=== PATIENT | male | born 1965 | race Caucasian/White ===

== ENCOUNTER 2016-10-24 08:36 | Emergency (ER) | payer OTHER ==
[~2016-10-24] VITALS: Ht 188 cm; Wt 117.9 kg
[~2016-10-24 08:36] MED LIST: ERYT1OIN6 EACHEYE; ERYT1OIN6 OS; OFLO5DRO EACHEYE; OFLO5DRO OS
--- NOTE | 2016-10-24 09:00 | EKG ---
[facility] [address] [place] [address] Test Date: 2016-10-24 Test Time: 08:49:34 Pat Name: ADAM AUSTIN Department: Room: Gender: M Packaging Engineer: : 1965 Requested By: BREANNE SWEENEY Order Number: [id number] Reading MD: Michelle Sutherland Measurements Intervals [place] Rate: 62 P: 20 MO: 172 QRS: -8 QRSD: 92 T: 9 QT: 362 QTc: 369 Interpretive Statements SINUS RHYTHM LEFTWARD AXIS OTHERWISE NORMAL ECG RI6.01 Unconfirmed report No previous ECG available for comparison Electronically Signed On 10-27-2016 15:47:08 [employer] by Michelle Sutherland
--- NOTE | 2016-10-24 09:20 | RAD ---
Indication chest pain. A single view of the chest was obtained. No prior imaging of the chest is available. Heart size is at the upper limits of normal. There is no congestive heart failure focal infiltrate significant pleural fluid collection or pneumothorax. Visualized bony structures appear grossly intact. IMPRESSION: No acute or focal process seen in the chest
[2016-10-24 09:44] LABS: BASO % 0 % (0-3); EOS % 5 % (0-3); HEMATOCRIT 47.5 % (39.0-53.0); HEMOGLOBIN 15.9 g/dL (13.0-17.5); LYMPH # 1.7 x10^3/uL (1.0-4.8); LYMPH % 24 % (24-48); MEAN CORPUSCULAR HEMOGLOBIN 28 pg (25-35); MEAN CORPUSCULAR HGB CONC 34 g/dL (31-37); MEAN CORPUSCULAR VOLUME 85 fL (79-100); MONO % 8 % (0-9); NEUT % 63 % (31-73); PLATELET COUNT 225 x10^3/uL (140-400); RED BLOOD COUNT 5.62 x10^6/uL (4.30-5.70); RED CELL DISTRIBUTION WIDTH 14.2 % (11.5-14.5); WHITE BLOOD COUNT 6.9 x10^3/uL (4.0-11.0)
[2016-10-24 09:55] LABS: CALCIUM 9.6 mg/dL (8.5-10.1); CREATININE 1.1 mg/dL (0.7-1.3); GFR 71.4
--- NOTE | 2016-10-24 09:57 | PHYS DOC ---
Past Medical History Past Medical History: Cancer, Hypertension Additional Past Medical Histor: prostate ca Past Surgical History: No Surgical History Additional Past Surgical Histo: prostate removed Alcohol Use: Occasionally Drug Use: None Adult General Chief Complaint Chief Complaint: CHEST PAIN HPI HPI 50-year-old male with remote history of prostate cancer who works in our IT department presents with sudden onset of right upper quadrant pain radiating to his back. He states he was sitting in his desk this morning eating yogurt when he developed a sharp pain in his right lower chest right upper quadrant that radiated to his back. The pain lasted for several minutes he talked to a nurse who was working near him this morning and she told him to come to the ER for evaluation. On arrival to the emergency department his pain had resolved. He states he was briefly nauseous but did not have any diaphoresis. He denies any fever chills or sweats. He states this is the first time she's had such a pain. He does state that he sits most of the day at a desk. He denies any unilateral lower extremity swelling. [] Review of Systems Review of Systems Constitutional: Denies fever or chills [] Eyes: Denies change in visual acuity, redness, or eye pain [] HENT: Denies nasal congestion or sore throat [] Respiratory: Denies cough or shortness of breath [] Cardiovascular: No additional information not addressed in HPI [] GI: Per history of present illness [] : Denies dysuria or hematuria [] Musculoskeletal: Denies back pain or joint pain [] Integument: Denies rash or skin lesions [] Neurologic: Denies headache, focal weakness or sensory changes [] Endocrine: Denies polyuria or polydipsia [] Allergies Allergies Allergies Coded Allergies Type Severity Reaction Last Updated Verified sulfamethoxazole Allergy Mild rash 10/24/16 Yes trimethoprim Allergy Mild rash 10/24/16 Yes Physical Exam Physical Exam Constitutional: Well developed, well nourished, no acute distress, non-toxic appearance. [] HENT: Normocephalic, atraumatic, bilateral external ears normal, oropharynx moist, no oral exudates, nose normal. [] Eyes: PERRLA, EOMI, conjunctiva normal, no discharge. [] Neck: Normal range of motion, no tenderness, supple, no stridor. [] Cardiovascular:Heart rate regular rhythm, no murmur [] Lungs & Thorax: Bilateral breath sounds clear to auscultation [] Abdomen: Bowel sounds normal, soft, no tenderness, no masses, no pulsatile masses. [] Skin: Warm, dry, no erythema, no rash. [] Back: No tenderness, no CVA tenderness. [] Extremities: No tenderness, no cyanosis, no clubbing, ROM intact, no edema. [] Neurologic: Alert and oriented X 3, normal motor function, normal sensory function, no focal deficits noted. [] Psychologic: Affect normal, judgement normal, mood normal. [] Current Patient Data Vital Signs Vital Signs Date Time Temp Pulse Resp B/P Pulse Ox O2 Delivery O2 Flow Rate FiO2 10/24/16 10:30 66 18 146/86 97 Room Air 10/24/16 08:57 97.6 97.6 Lab Values Laboratory Tests Test 10/24/16 09:19 White Blood Count 6.9x10^3/uL (4.0-11.0) Red Blood Count 5.62x10^6/uL (4.30-5.70) Hemoglobin 15.9g/dL (13.0-17.5) Hematocrit 47.5% (39.0-53.0) Mean Corpuscular Volume 85fL (79-100) Mean Corpuscular Hemoglobin 28pg (25-35) Mean Corpuscular Hemoglobin Concent 34g/dL (31-37) Red Cell Distribution Width 14.2% (11.5-14.5) Platelet Count 225x10^3/uL (140-400) Neutrophils (%) (Auto) 63% (31-73) Lymphocytes (%) (Auto) 24% (24-48) Monocytes (%) (Auto) 8% (0-9) Eosinophils (%) (Auto) 5% (0-3) H Basophils (%) (Auto) 0% (0-3) Neutrophils # (Auto) 4.4x10^3uL (1.8-7.7) Lymphocytes # (Auto) 1.7x10^3/uL (1.0-4.8) Monocytes # (Auto) 0.5x10^3/uL (0.0-1.1) Eosinophils # (Auto) 0.3x10^3/uL (0.0-0.7) Basophils # (Auto) 0.0x10^3/uL (0.0-0.2) D-Dimer (Abbi) < 0.27ug/mlFEU (0.00-0.50) Sodium Level 143mmol/L (136-145) Potassium Level 4.0mmol/L (3.5-5.1) Chloride Level 108mmol/L (98-107) H Carbon Dioxide Level 26mmol/L (21-32) Anion Gap 9 (6-14) Blood Urea Nitrogen 14mg/dL (8-26) Creatinine 1.1mg/dL (0.7-1.3) Estimated GFR (Cockcroft-Gault) 71.4 BUN/Creatinine Ratio 13 (6-20) Glucose Level 134mg/dL (70-99) H Calcium Level 9.6mg/dL (8.5-10.1) Total Bilirubin 0.7mg/dL (0.2-1.0) Aspartate Amino Transferase (AST) 20U/L (15-37) Alanine Aminotransferase (ALT) 30U/L (16-63) Alkaline Phosphatase 79U/L (46-116) Troponin I Quantitative < 0.017ng/mL (0.000-0.055) HW-Vjq-R-Type Natriuretic Peptide 10pg/mL (0-124) Total Protein 7.5g/dL (6.4-8.2) Albumin 3.7g/dL (3.4-5.0) Albumin/Globulin Ratio 1.0 (1.0-1.7) Laboratory Tests 10/24/16 09:19 Laboratory Tests 10/24/16 09:19 EKG EKG [EKG: Normal sinus rhythm rate of [address]-T changes] Radiology/Procedures Radiology/Procedures []PROCEDURE: CHEST AP ONLY Indication chest pain. A single view of the chest was obtained. No prior imaging of the chest is available. Heart size is at the upper limits of normal. There is no congestive heart failure focal infiltrate significant pleural fluid collection or pneumothorax. Visualized bony structures appear grossly intact. IMPRESSION: No acute or focal process seen in the chest Impressions: PROCEDURE: ABDOMEN LTD Limited abdomen ultrasound study of the right upper quadrant Clinical indications: Right upper quadrant abdominal pain. Findings: The patient ate 2 hours ago. Midline structures including the pancreas and abdominal aorta are obscured by overlying bowel gas. The gallbladder is normal without gallstones. The liver measures 17.9 cm in length. No focal hepatic mass is seen. The extra hepatic bile duct measures 4.0 mm in caliber which is normal. The length of the right kidney is 11.8 cm. No hydronephrosis or renal mass or perinephric collection is seen on the right side. IMPRESSION: Unremarkable sonographic evaluation of the gallbladder. Course & Med Decision Making Course & Med Decision Making Pertinent Labs and Imaging studies reviewed. (See chart for details) [ED course: Evaluation reveals a 50-year-old male with atypical sounding chest pain. He had right upper quadrant pain with radiation to the back and a gallbladder ultrasound was ordered which was negative. His laboratory studies including LFTs were negative also given the fact the patient has a history of cancer I ordered a d-dimer to effectively rule out pulmonary embolus as the cause for his right lower chest discomfort. Patient remained chest pain-free throughout his stay and I felt he was stable for discharge home.] Dragon Disclaimer Dragon Disclaimer This electronic medical record was generated, in whole or in part, using a voice recognition dictation system. Departure Departure Impression: Primary Impression: Abdominal pain Disposition: HOME, SELF-CARE Condition: STABLE Referrals: BRANDT MUNROE APRN (PCP) Patient Instructions: Abdominal Pain Additional Instructions: Follow with your family doctor this week for recheck. Return to the emergency department with any new or concerning symptoms Scripts Ranitidine Hcl (Zantac)300 Mg Tablet1 Tab PO QHS reflux #90 TAB Ref 3 Prov:BREANNE SWEENEY DO 10/24/16 Problem Qualifiers Primary Impression: Abdominal pain Abdominal location: right upper quadrant Qualified Code: R10.11 - Right upper quadrant pain BREANNE SWEENEY DO Oct 24, 2016 09:57
[2016-10-24 10:00] LABS: ALBUMIN 3.7 g/dL (3.4-5.0); TOTAL BILIRUBIN 0.7 mg/dL (0.2-1.0); TOTAL PROTEIN 7.5 g/dL (6.4-8.2)
--- NOTE | 2016-10-24 10:20 | RAD ---
Limited abdomen ultrasound study of the right upper quadrant Clinical indications: Right upper quadrant abdominal pain. Findings: The patient ate 2 hours ago. Midline structures including the pancreas and abdominal aorta are obscured by overlying bowel gas. The gallbladder is normal without gallstones. The liver measures 17.9 cm in length. No focal hepatic mass is seen. The extra hepatic bile duct measures 4.0 mm in caliber which is normal. The length of the right kidney is 11.8 cm. No hydronephrosis or renal mass or perinephric collection is seen on the right side. IMPRESSION: Unremarkable sonographic evaluation of the gallbladder.
[2016-10-24 10:30] VITALS: BP 146/86
[2016-10-24] MEDS ORDERED: RANI300T3 PO (10:34)
== END 2016-10-24 11:00 | disposition home or self-care (01) ==
LOC: ER 08:36
DX: R10.11 Right upper quadrant pain (principal); R11.0 Nausea; I10 Essential (primary) hypertension; Z88.2 Allergy status to sulfonamides; Z88.8 Allergy status to other drugs, medicaments and biological substances
CPT/HCPCS: 36415; 71010; 76705; 80053; 83880; 84484; 85027; 85379; 93005; 99285-25

== ENCOUNTER → 2016-11-01 | Outpatient (CLI) | payer OTHER ==
[2016-10-24 10:30] VITALS: BP 146/86
[~2016-11-01] MED LIST changes: +METO-269 PO; +OMEG1CAP38 PO; +OMEP40CA5 PO; +PHEN37.53 PO; +RANI300T3 PO
[2016-11-01 09:25] LABS: ALBUMIN 3.7 g/dL (3.4-5.0); ALBUMIN/GLOBULIN RATIO 0.9 (1.0-1.7); CALCIUM 9.1 mg/dL (8.5-10.1); CREATININE 1.2 mg/dL (0.7-1.3); GFR 64.6; POTASSIUM 3.9 mmol/L (3.5-5.1); TOTAL BILIRUBIN 0.6 mg/dL (0.2-1.0); TOTAL PROTEIN 7.6 g/dL (6.4-8.2)
[2016-11-05 08:27] LABS: PSA FREE <0.01 ng/mL; PSA TOTAL <0.1 ng/mL (0.0-4.0)
[2016-11-05 09:23] LABS: % FREE TESTOSTERONE 2.43 % (1.50-4.20); TESTOSTERONE TOTAL 251 ng/dL (348-1197)
== END | disposition home or self-care (01) ==
LOC: LAB 08:09
PROVIDERS: ATTEND Nurse Practitioner Women's Health
DX: R73.9 Hyperglycemia, unspecified (principal); N52.1 Erectile dysfunction due to diseases classified elsewhere; Z85.46 Personal history of malignant neoplasm of prostate; Z13.820 Encounter for screening for osteoporosis; I10 Essential (primary) hypertension
CPT/HCPCS: 36415; 80053; 82670; 83036; 83525; 84153; 84154; 84402; 84403

== ENCOUNTER → 2016-11-18 | Day surgery (SDC) | payer OTHER ==
[~2016-11-18] MED LIST changes: +IV RINGERS,LACTATED 1000ML 1,000 ML IV SCH; +LIDOCAINE 2% PF Vial for OR 5 ML VIAL. ONE; +PROPOFOL 40 ML IV ONE
--- NOTE | 2016-11-18 13:07 | PDOC1 ---
History and Physical Date of Admission Date of Admission DATE: 11/18/16 TIME: 12:54 Source Source: Chart review, Patient History of Present Illness History of Present Illness Having dysphagia and h/o dyspepsia. Recent change in bowel habits/past 6 months with 2-3 loose stools daily. Occasional BRB on TP. Past Medical History Cardiovascular: HTN Heme/Onc: Cancer (prostate) Psych: Anxiety, Depression Past Surgical History Past Surgical History: Other (prostatectomy, hemorrhoidectomy) Family History Family History: Cancer (breast), Diabetes, Hypertension Social History Smoke: No ALCOHOL: occassional Drugs: None Current Medications Current Medications Current Medications Lactated Ringer's 1,000 ml @ 50 mls/hr Q20H IV Last administered on 11/18/16t 12:42; Start 11/18/16 at 07:00; Stop 11/18/16 at 18:59 Propofol (Diprivan) 40 ml @ As Directed STK-MED ONCE IV ; Start 11/18/16 at 10:13 ; Stop 11/18/16 at 10:14; Status DC Lidocaine HCl (Lidocaine Pf 2% Vial) 5 ml STK-MED ONCE .ROUTE ; Start 11/18/16 at 10:13; Stop 11/18/16 at 10:14; Status DC Active Scripts Active Zantac (Ranitidine Hcl) 300 Mg Tablet 1 Tab PO QHS Ocuflox (Ofloxacin) 5 Ml Drops 1 Drop EACHEYE QID 7 Days Use during the day or while outside the home. Erythromycin (Erythromycin Base) 3.5 Gm Oint...g. 1 Mireya OS BID Use at night or while at home. May cause temporarily blurred vision. Reported [place] 3 Fish Oil Softgel ([place]-3 Fatty Acids/Fish Oil) 1 Each Capsule.dr 1 Each PO DAILY Toprol Xl (Metoprolol Succinate) 50 Mg Tab.er.24h 1 Tab PO DAILY Phentermine Hcl 37.5 Mg Capsule 1 Cap PO BID Allergies Allergies: Coded Allergies: sulfamethoxazole (Verified Allergy, Mild, rash, 11/18/16) trimethoprim (Verified Allergy, Mild, rash, 11/18/16) ROS Review of System Otherwise negative. Physical Exam General: Alert, Oriented X3, Cooperative, No acute distress Lungs: Clear to auscultation Heart: S1S2, RRR, no gallops, no murmurs Abdomen: Normal bowel sounds, Soft, No tenderness, No hepatosplenomegaly, No masses Rectal Exam: deferred (to procedure) Extremities: No cyanosis, No edema Skin: No significant lesion Neuro: Normal speech, Strength at 5/5 X4 ext, Normal tone, Sensation intact, Cranial nerves 3-12 NL, Reflexes 2+ Psych/Mental Status: Mental status NL, Mood NL Vitals Vitals Vital Signs Date Time Temp Pulse Resp B/P Pulse Ox O2 Delivery O2 Flow Rate FiO2 11/18/16 12:23 98.6 92 18 95 98.6 VTE Prophylaxis Ordered VTE Prophylaxis Devices: No VTE Pharmacological Prophylaxi: No Assessment/Plan Assessment/Plan IMP: Dysphagia Change in 's PLAN: Colonoscopy/EGD. MEAGHAN CORRALES MD Nov 18, 2016 13:07
[2016-11-18 14:30] VITALS: BP 117/82
--- NOTE | 2016-11-20 15:08 | PATHOLOGY ---
PATHOLOGY REPORT * * * * * * * * FINAL DIAGNOSIS: A. Gastric biopsy, antrum: - Congestion and slight chronic inflammation. B. Esophageal biopsy, middle esophagus: - Esophagitis with eosinophils. C. Colon biopsies, cecum and ascending colon: - No significant pathologic abnormalities. D. Colorectal biopsies, rectum: - No significant pathologic abnormalities. COMMENT: Sections of the gastric antral biopsy show congestion and slight chronic inflammation. An immunoperoxidase stain for Helicobacter is obtained. There are no Helicobacter organisms identified. Sections of the mid esophageal biopsy reveal hyperplastic squamous esophageal mucosa containing intraepithelial eosinophils. The differential diagnosis of esophagitis with eosinophils includes reflux esophagitis, "pill esophagitis," and eosinophilic esophagitis. There are focally between 20 and 30 intraepithelial eosinophils per high power field. This is suggestive of eosinophilic esophagitis. Correlate clinically. This biopsy also contains a segment of gastric mucosa which is most likely a contaminant. Sections of the cecal and ascending colon biopsy reveal segments of colonic mucosa containing a few focally hyperplastic mucosal-associated lymphoid aggregates. There is no evidence of a chronic destructive colitis, lymphocytic colitis, or collagenous colitis. Sections of the rectal biopsy reveal multiple segments of rectal mucosa containing several, focally hyperplastic mucosal-associated lymphoid aggregates and showing focal recent hemorrhage in the lamina propria. There is no evidence of a chronic destructive colitis, lymphocytic colitis, or collagenous colitis. (JPM:mgab; d/t: 11/20/16) Special Stain Performed: Immunoperoxidase stain for Helicobacter (A1) REPORT ELECTRONICALLY SIGNED BY: Eddie Rey M.D. DATE/TIME: 11/20/2016 15:07 * * * * * * * * GROSS PATHOLOGY: A. Received in formalin labeled "Christopher Roller, antral biopsy," is a segment of ramirez soft tissue measuring 0.5 cm in maximum dimension. The specimen is submitted entirely in cassette A1. B. Received in formalin labeled "Christopher Roller, mid esophagus biopsy," is a segment of ramirez soft tissue measuring 0.3 cm in maximum dimension. The specimen is submitted entirely in cassette B1. C. Received in formalin labeled "Christopher Roller, cecum and ascending colon biopsy," are eight segments of ramirez soft tissue measuring 1.2 x 1.0 x 0.3 cm in aggregate dimensions and ranging from 0.2 to 1.0 cm in maximum dimension. The specimen is submitted entirely in cassette C1. D. Received in formalin labeled "Christopher Roller, rectal biopsy," are three segments of ramirez soft tissue measuring 0.6 x 0.6 x 0.1 cm in aggregate dimensions and ranging from 0.1 to 0.6 cm in maximum dimension. The specimen is submitted entirely in cassette D1. (CAA; 11/19/2016) INITIAL CPT CODE(S): A; 00770, 74085 B; 43576 C; 45683 D; 82897 Professional services performed [place] [facility] [place] [address] Technical services performed by [facility] at [address] [place] [address] [address] [address]. SPECIMEN(S) RECEIVED: A.Antral biopsy B.Mid esophagus biopsy C.Cecum and ascending colon biopsy D.Rectal biopsy CLINICAL HISTORY: Dysphagia, abdominal pain PATIENT: MEERA AUSTIN /AGE: 3 1965 (Age: 51) PATIENT #: [id number] ALT CASE #: SPECIMEN COLLECTION DATE: 11/18/2016 SPECIMEN RECEIVED DATE: 11/19/2016 [facility] - [address] [place] [address] - PHONE: [phone] * * * END OF REPORT * * *
== END | disposition home or self-care (01) ==
LOC: ENDOS 11:51
PROVIDERS: ATTEND Internal Medicine Gastroenterology
DX: K58.0 Irritable bowel syndrome with diarrhea (principal); K64.8 Other hemorrhoids; E11.9 Type 2 diabetes mellitus without complications; E66.9 Obesity, unspecified; E78.00 Pure hypercholesterolemia, unspecified
CPT/HCPCS: 45380; J2704; 88305; 88342; G0641

== ENCOUNTER → 2016-11-25 | Outpatient (CLI) | payer OTHER ==
[2016-11-18 14:30] VITALS: BP 117/82
[~2016-11-25] MED LIST changes: +CONTRAST GIVEN MC PRN; +IOHEXOL 240 MG/ML 50ML VIAL. PO ONE; +IOHEXOL 300 MG/ML 75 ML VIAL IV ONE; -IV RINGERS,LACTATED 1000ML 1,000 ML IV SCH; -LIDOCAINE 2% PF Vial for OR 5 ML VIAL. ONE; -PROPOFOL 40 ML IV ONE
--- NOTE | 2016-11-26 09:31 | RAD ---
Indication: Severe ongoing mid abdominal pain extending to the left. Technique: Axial images and coronal and sagittal reformatted images of the abdomen are provided. Oral contrast and 75 mL of intravenous Omnipaque 300 was administered without complication. Comparison is an ultrasound from October 24, 2016. One or more of the following individualized dose reduction techniques were utilized for this examination: 1. Automated exposure control 2. Adjustment of the mA and/or kV according to patient size 3. Use of iterative reconstruction technique Findings: There is atelectasis in the right lung base. There is no pleural effusion. The heart is not enlarged. There is fatty infiltration of the liver. Gallbladder is absent. Spleen is not enlarged. Pancreas and adrenals are unremarkable. Kidneys are symmetrically perfused. Probable cyst in the left kidney measures 13 mm. Aorta is normal caliber. The included small bowel and colon are grossly unremarkable. There may be a small hiatal hernia. There is mild stranding of the upper abdomen mesentery with a few mildly prominent mesenteric lymph nodes present. The included colon is unremarkable. The appendix is partially included and is normal. There is a fat-containing umbilical hernia. Bony structures are intact. There are degenerative changes in the spine at the lumbosacral junction. Impression: 1. Stranding in the upper abdominal mesentery with a few prominent mesenteric lymph nodes, raises the possibility of mesenteric panniculitis. 2. Fatty infiltration of the liver. 3. Small hiatal hernia suspected.
== END | disposition home or self-care (01) ==
LOC: CT 15:17
PROVIDERS: ATTEND Nurse Practitioner Women's Health
DX: K76.0 Fatty (change of) liver, not elsewhere classified (principal); I10 Essential (primary) hypertension; J98.11 Atelectasis; N28.1 Cyst of kidney, acquired; K42.9 Umbilical hernia without obstruction or gangrene
CPT/HCPCS: 74160; Q9967